=== PATIENT | female | born 2005 | race Caucasian/White ===

== ENCOUNTER 2024-08-12 00:49 | Emergency (ER) | payer SELFPAY ==
[~2024-08-12] VITALS: Ht 175.3 cm; Wt 72.7 kg
[2024-08-12 01:06] VITALS: BP 137/90; TEMP 98
[2024-08-12 01:23] LABS: BASO # 0.1 K/mm3 (0.0-0.2); BASO % 0.8 % (0.0-2.0); EOS # 0.1 K/mm3 (0.0-0.7); EOS % 1.3 % (0.0-4.0); GRAN # 6.7 K/mm3 (1.4-6.5); GRAN % 68.1 % (42.2-75.2); HEMOGLOBIN 13.4 g/dl (12.5-16.0); LYMPH # 2.3 K/mm3 (1.2-3.4); LYMPH % 23.1 % (20.0-51.0); MEAN CELL VOLUME 87 fl (80.0-100.0); MEAN CORPUSCULAR HEMOGLOBIN 30 pg (27-31); MEAN CORPUSCULAR HGB CONC 34 g/dl (33.0-37.0); MEAN PLATELET VOLUME 10.1 fl (7.4-10.4); MONO # 0.6 K/mm3 (0.1-0.6); MONO % 6.3 % (1.7-9.3); PLATELET COUNT 337 K/mm3 (130-400); REDCELL DISTRIBUTION WIDTH-CV 12.1 % (11.5-14.5)
[2024-08-12] MEDS ORDERED: NS 1,000 ML IV ONE (01:30)
[2024-08-12] MEDS ORDERED: Ondansetron 4 MG/2 ML VIAL IV ONE (01:30)
[2024-08-12 01:49] LABS: ALBUMIN 4.3 g/dL (3.5-5.0); BILIRUBIN,TOTAL 0.3 mg/dL (0.2-1.2); CALCIUM 8.9 mg/dL (8.4-10.2); CREATININE, serum 0.85 mg/dL (0.57-1.11); POTASSIUM 3.4 mEq/L (3.5-4.5); TOTAL PROTEIN 7.3 g/dl (6.2-8.1)
[2024-08-12] MEDS ORDERED: Home Ondansetron ODT 4 MG #2 ODT/PACK PO ONE (02:30)
[2024-08-12 03:48] VITALS: PULSE 88
== END 2024-08-12 03:49 | disposition home or self-care (01) ==
LOC: COL.ER 00:49
PROVIDERS: Nurse Practitioner
DX: R11.2 Nausea with vomiting, unspecified (principal)
CPT/HCPCS: J2405; J7030